=== PATIENT | female | born 1970 | race Caucasian/White ===

== ENCOUNTER → 2020-09-06 | Outpatient (CLI) | payer MEDICARE, MEDICAID ==
--- NOTE | 2020-09-06 21:07 | NEURO WORKBENCH EEG REPORT ---
EEG Report Patient: Irasema Kong ID: [id number] Referring Doctor: Indra Rosen MD DOS: 09/06/2020 Medications: stopped taking medications one month ago History This is a 50 year old right handed female with a history of seizures since 2006, last seizure one year ago, malignant brain neoplasm, hypertension, gall bladder removal, prior back surgeries. This EEG was requested for seizures. EEG Interpretation This EEG was recorded in the awake, drowsy, and sleep states with much of the EEG recorded during the drowsy and sleep states. The awake EEG was briefly noted throughout and is characterized by a fairly well-organized background without a well-developed but there was a reactive posterior dominant rhythm of ~10 Hz. The remainder of the background was characterized by a combination of alpha with prominent beta frequencies. There was lambda present. Drowsiness was characterized by slowing of the background rhythms. Vertex waves and sleep spindles were seen in the midline head regions. Photic stimulation resulted in no significant changes. Hyperventilation resulted in generalized slowing of the background. There were sharply contoured waveforms noted throughout the recording in the central regions during wakefulness but these did not appear definitively epileptiform but could be consistent with breach rhythm if consistent with history. The EKG showed a regular rhythm. This was a technically poor study that impaired interpretation. EEG Classification * Prominent beta * Possible breach * Technically poor study EEG Impression This EEG is mildly abnormal. Prominent beta activity may be seen with certain medications (e.g. benzodiazepines). There were sharply contoured high amplitude waveforms noted in the central regions that could be consistent with a breach rhythm. Clinical correlation is required. INTERPRETING NEUROLOGIST: Michelle Santamaria MD, [facility] Board Certified in Neurology, with special qualification in Child Neurology, and in Clinical Neurophysiology [facility]
== END ==
LOC: NEURO 07:59
PROVIDERS: ATTEND Pediatrics
DX: G40.909 Epilepsy, unspecified, not intractable, without status epilepticus (principal); Z85.841 Personal history of malignant neoplasm of brain; Z91.19 Patient's noncompliance with other medical treatment and regimen
CPT/HCPCS: 95819